=== PATIENT | male | born 1960 | race Caucasian/White ===

== ENCOUNTER 2018-10-29 08:19 | Inpatient (IN) ==
[2018-10-29] MEDS ORDERED: ASPIRIN PO ONE ×2 (08:44→12:07)
[2018-10-29 09:01] LABS: BASO# 0.01 X1000 (0.0-0.2); BASO% 0.2 % (0.0-0.8); EOS# 0.23 X1000 (0.0-0.7); EOS% 3.8 % (0.0-10.0); HEMOGLOBIN 14.4 g/dL (14.0-18.0); IMM GRAN# 0.04 X1000 (0.0-0.04); IMM GRAN% 0.7 % (0.0-0.5); LYMPH# 1.83 X1000 (1.2-3.4); LYMPH% 30.4 % (20.5-51.1); MCH 30.3 PG (27-31); MCHC 36.9 g/dL (33-37); MCV 81.9 FL (81-99); MONO# 0.58 X1000 (0.11-0.59); MONO% 9.6 % (1.7-9.3); MPV 10.6 FL (7.4-10.4); NEUT# 3.33 X1000 (1.4-6.5); NEUT% 55.3 % (42.2-75.2); PLT 215 X1000 (130-400); RBC 4.76 XMIL (4.7-6.1); RDW 12.8 % (11.5-14.5); WBC 6.02 X1000 (4.8-10.8)
[2018-10-29 09:10] LABS: INR 1.1; PROTIME 14.4 Seconds (11.0-16.0); PTT 36.2 Seconds (22.3-41.8)
[2018-10-29 09:22] LABS: AGAP 11; ALB/GLOB RATIO 1.6; ALBUMIN 4.5 g/dL (3.5-5.0); ALKALINE PHOSPHATASE 71 U/L (32-122); BUN 19 mg/dL (8-22); CALCIUM 9.6 mg/dL (8.8-10.2); CHLORIDE 99 mmol/L (98-107); CK PROFILE 117 U/L (24-204); COSMO 288; CREATININE 1.1 mg/dL (0.7-1.2); ESTIMATED GFR > 60; GLUCOSE 380 mg/dL (70-104); GOT 13 U/L (10-34); GPT 17 U/L (10-44); POTASSIUM 3.5 mmol/L (3.5-5.1); SODIUM 135 mmol/L (136-145); TCO2 25 mmol/L (25-35); TOTAL BILIRUBIN 0.46 mg/dL (0.20-1.00); TOTAL PROTEIN 7.4 g/dL (6.3-8.3)
--- NOTE | 2018-10-29 09:22 | Diag Imaging Result Doc PS360 ---
EXAM: CHEST-2 VIEWS 10/29/2018 HISTORY: CP TECHNIQUE: PA and lateral chest COMMENT: There is no evidence of acute cardiac or pulmonary disease. Compared to 11/04/2010 there has been no significant change. IMPRESSION: No evidence of acute disease. Electronically signed by Silver Jaramillo 10/29/2018 9:19 AM
--- NOTE | 2018-10-29 10:09 | EKG Report ---
Test Performed on : 10/29/2018 08:29:33 AM Test Reason : CP Blood Pressure : / mmHG Vent. Rate : 088 BPM Atrial Rate : 088 BPM P-R Int : 178 ms QRS Dur : 156 ms QT Int : 422 ms P-R-T Axes : 048 -54 027 degrees QTc Int : 510 ms Normal sinus rhythm. Possible Left atrial enlargement Right bundle branch block Left anterior fascicular block Bifascicular block Left ventricular hypertrophy Abnormal ECG When compared with ECG of 04-NOV-2010 03:28, Vent. rate has increased BY 30 BPM Left anterior fascicular block is now present QT has lengthened Unconfirmed Result
[2018-10-29] MEDS ORDERED: NITROGLYCERIN SL ONE ×2 (12:07→13:53)
[2018-10-29] MEDS ORDERED: NITROGLYCERIN TOP ONE (12:07)
[2018-10-29] MEDS ORDERED: NORVASC PO ONE (12:07)
[2018-10-29] MEDS ORDERED: LASIX IV ONE (12:07)
[2018-10-29 12:24] LABS: ALLEN TEST YES; BE 1.6 mmoll (-3.0-3.0); BLOOD TYPE ARTERIAL; HCO3-(ACT) 26.1 mmoll (20.0-26.0); METHB 0.8 % (0.0-1.5); O2(CT) 19.5 mL/dL (15.0-23.0); O2HB 93.7 % (95.0-99.0); PCO2(98.6) 39 mmHg (35-45); PO2(98.6) 69 mmHg (60-100); SAMPLE BLOOD; SAO2 95.9 % (95.0-100.0); THB 14.8 g/dL (11.5-17.4); pH(98.6) 7.43 (7.35-7.45)
[2018-10-29 12:25] LABS: MODALITY ROOM AIR
[2018-10-29] MEDS ORDERED: PRINIVIL PO ONE (13:53)
--- NOTE | 2018-10-29 13:55 | PROVIDER DOCUMENTATION ---
This chart was entered by Roslyn Hale Scribe, acting as scribe for Bola Navarrete MD. HPI-Chest Pain - General Chief Complaint: Chest Pain Stated Complaint: SOB, CP, MAURER Time Seen by Provider: 10/29/18 11:55 Source: patient Allergies/Adverse Reactions: Patient Allergies Allergy/AdvReac Type Severity Reaction Status Date / Time No Known Allergies Allergy Verified 10/29/18 11:09 Home Medications: Home Medication List Medication Instructions Recorded Confirmed Last Taken Type Amlodipine [Norvasc] 10 mg PO DAILY 10/29/18 10/29/18 10/22/18 History Glimepiride 4 mg PO BID 10/29/18 10/29/18 10/22/18 History LISINOpril [Prinivil] 40 mg PO BID 10/29/18 10/29/18 10/22/18 History Metoprolol [Lopressor] 100 mg PO BID 10/29/18 10/29/18 10/22/18 History PRAVAstatin [Pravachol] 40 mg PO DAILY 10/29/18 10/29/18 10/22/18 History Potassium Chloride [Klor-Con M10] 10 meq PO DAILY 10/29/18 10/29/18 10/22/18 History - History of Present Illness-CP Nature of Presenting Problem: 58 yowm [facility] c/o chest pain, sob and nausea and sts "Its been going on for a while" pt on exam sts all pain has resolved but pain is intermittent and when it comes it is 9/10 pain. pt has uncontrolled BP on exam with readings of 201/150 and 211/129. pt sts has been out of all his medications "for at least a week" pt on exam is nontoxic in appearance Location: reports: other (left anterior) Chest Pain Radiation: reports: no radiation Quality of Pain: reports: none Severity in ED: severe (9/10 "when pain hits") Onset/Duration: other ("for a while") Timing: gone now Context/Activities at Onset: reports: light activity Modifying Factors: improves with: nothing Associated Symptoms: reports: nausea, shortness of breath. denies: abdominal pain, back pain, fever/chills, headache, heartburn, vomiting Nitro Today/Relief: no nitro taken today Aspirin Treatment Today: 325 mg x 1, provided by ED Similar Symptoms Previously?: No Recently Seen Here or By Another Healthcare Provider: No Review of Systems - Adult - REVIEW OF SYSTEMS - ADULT Constitutional: denies: chills, fever Eyes: reports: no symptoms reported Ears, Nose, Mouth & Throat: reports: no symptoms reported Cardiovascular: reports: see HPI, chest pain, edema. denies: palpitations, syncope Respiratory: reports: shortness of breath. denies: cough, wheezing Gastrointestinal: reports: nausea. denies: abdominal pain, diarrhea, vomiting Genitourinary: reports: no symptoms reported Musculoskeletal: reports: no symptoms reported Integumentary: reports: no symptoms reported Neurological: denies: dizziness/vertigo, headache/migraines Psychiatric: reports: no symptoms reported Endocrine: reports: no symptoms reported Hematologic/Lymphatic: reports: no symptoms reported Allergic/Immunologic: reports: no symptoms reported All Other Systems: Reviewed and Negative Past History - Adult - PAST MEDICAL HISTORY-ADULT Review of Records: reports: Old Records Reviewed, Nursing Assessment Review, Medications Reviewed, Social history reviewed & non-contributory. Major Childhood Illnesses: reports: denies history Cardiovascular: reports: HTN, hyperlipidemia, murmur Respiratory: reports: denies history Gastrointestinal: reports: denies history Genitourinary: reports: denies history Musculoskeletal: reports: chronic pain, intervertebral disc disease, neck/back injury Neurological: reports: denies history Psychiatric: reports: denies history Endocrine/Immune: reports: Diabetes Diabetes Type: Type 2 Other Conditions: reports: denies history - PRIOR SURGERIES/PROCEDURES Surgical/Procedure History: reports: reviewed, not pertinent - IMMUNIZATION STATUS Childhood Immunizations: See Nurse Assessment Flu Vaccine: See Nurse Assessment - FAMILY HISTORY Family History: reviewed, not pertinent - SOCIAL HISTORY Smoking: cigarettes, greater than 1 pack/day Provider spent 3-5 mins advising pt. on dangers of tobacco.: Discussed manners to quit use, and f/u contacts for add'l counseling. Substance Use: alcohol Alcohol Use Frequency: 2-3 times a month Number of drinks per typical drinking period:: 3-4 drinks Living Situation: family Physical Exam-General - PHYSICAL EXAM-ADULT Exam Limited by: BP 211/129 Initial Vital Signs Reviewed: Yes - CONSTITUTIONAL General Appearance: appears well, alert, no apparent distress (all sx resolved) - EYES Eyes: PERRL/EOMI, pink conjunctivae - HEAD, EARS, NOSE, MOUTH & THROAT HENMT: moist mucous membranes, normal ENT inspection - NECK Neck: non-tender, full range of motion, supple, normal inspection - RESPIRATORY Respiratory: chest non-tender, lungs clear, normal breath sounds - CARDIOVASCULAR Cardiovascular: normal peripheral pulses, regular rate, rhythm - GASTROINTESTINAL (ABDOMEN) Abdominal Exam: normal bowel sounds, non tender, soft - GENITOURINARY Male Genitalia: deferred Rectal Exam: deferred Hemoccult Exam: deferred - MUSCULOSKELETAL Back Exam: normal inspection, no CVA tenderness, no vertebral tenderness Extremity: normal range of motion, non-tender, normal gait, swelling (BLE edema) - SKIN Integumentary: normal color, normal turgor, warm/dry - NEUROLOGIC 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 negative: aphasia, facial droop, focal weakness - PSYCHIATRIC Psych/Mental Status: normal mood/affect, normal thought content, normal thought process, oriented x 3 - HEART Score HEART Score: History: Slightly Suspicious HEART Score: ECG: Non-Specific Repolarization Disturbance/LBBB/PM HEART Score: Age: 45-65 Years HEART Score: Risk Factors for Atherosclerotic Disease: > or = 3 Risk Factors or History of Atherosclerotic Disease HEART Score: Troponin: < or = Normal Limit Total HEART Score:: 4 Progress - PLAN OF CARE/RESULTS Progress/Plan/Lab Results: Vital Signs - 8 hr 10/29/18 08:37 Temperature 98.0 F Pulse Rate 85 Respiratory Rate 18 Blood Pressure 179/108 O2 Sat by Pulse Oximetry 96 Laboratory Results - last 24 hr 10/29/18 10/29/18 10/29/18 08:41 08:41 08:41 WBC 6.02 RBC 4.76 Hgb 14.4 Hct 39.0 L MCV 81.9 MCH 30.3 MCHC 36.9 RDW Std Deviation 12.8 Plt Count 215 MPV 10.6 H Immature Gran % (Auto) 0.7 H Neut % (Auto) 55.3 Lymph % (Auto) 30.4 [place] % (Auto) 9.6 H Eos % (Auto) 3.8 Baso % (Auto) 0.2 Immature Gran # (Auto) 0.04 Neut # (Auto) 3.33 Lymph # (Auto) 1.83 [place] # (Auto) 0.58 Eos # (Auto) 0.23 Baso # (Auto) 0.01 PT INR PTT (Actin FS) Specimen Type Sample Site pH pCO2 pO2 HCO3 Base Excess Oxyhemoglobin ABG O2 Sat (Calculated) ABG O2 Saturation ABG Carboxyhemoglobin ABG Methemoglobin Jakob Test A-a O2 Difference Total Hemoglobin Lactate Blood Gas Modality FiO2 % Sodium 135 L Potassium 3.5 Chloride 99 Carbon Dioxide 25 Anion Gap 11 BUN 19 Creatinine 1.1 Estimated GFR/1.73 m2 > 60 BUN/Creatinine Ratio 17 Glucose 380 H Calculated Osmolality 288 Calcium 9.6 Total Bilirubin 0.46 AST 13 ALT 17 Alkaline Phosphatase 71 Creatine Kinase 117 Troponin T Fqh-R-Vvvqyudhwka Pept 72 Total Protein 7.4 Albumin 4.5 Globulin 2.9 Albumin/Globulin Ratio 1.6 Acetone Level 10/29/18 10/29/18 10/29/18 08:41 08:41 08:41 WBC RBC Hgb Hct MCV MCH MCHC RDW Std Deviation Plt Count MPV Immature Gran % (Auto) Neut % (Auto) Lymph % (Auto) [place] % (Auto) Eos % (Auto) Baso % (Auto) Immature Gran # (Auto) Neut # (Auto) Lymph # (Auto) [place] # (Auto) Eos # (Auto) Baso # (Auto) PT 14.4 INR 1.10 PTT (Actin FS) 36.2 Specimen Type Sample Site pH pCO2 pO2 HCO3 Base Excess Oxyhemoglobin ABG O2 Sat (Calculated) ABG O2 Saturation ABG Carboxyhemoglobin ABG Methemoglobin Jakob Test A-a O2 Difference Total Hemoglobin Lactate Blood Gas Modality FiO2 % Sodium Potassium Chloride Carbon Dioxide Anion Gap BUN Creatinine Estimated GFR/1.73 m2 BUN/Creatinine Ratio Glucose Calculated Osmolality Calcium Total Bilirubin AST ALT Alkaline Phosphatase Creatine Kinase Troponin T < 0.010 Ost-[id number]-Qacjqetcqsl Pept Total Protein Albumin Globulin Albumin/Globulin Ratio Acetone Level NEGATIVE 10/29/18 10/29/18 12:20 13:13 WBC RBC Hgb Hct MCV MCH MCHC RDW Std Deviation Plt Count MPV Immature Gran % (Auto) Neut % (Auto) Lymph % (Auto) [place] % (Auto) Eos % (Auto) Baso % (Auto) Immature Gran # (Auto) Neut # (Auto) Lymph # (Auto) [place] # (Auto) Eos # (Auto) Baso # (Auto) PT INR PTT (Actin FS) Specimen Type ARTERIAL Sample Site R RADIAL pH 7.43 pCO2 39 pO2 69 HCO3 26.1 H Base Excess 1.6 Oxyhemoglobin 93.7 L ABG O2 Sat (Calculated) 19.5 ABG O2 Saturation 95.9 ABG Carboxyhemoglobin 1.60 ABG Methemoglobin 0.8 Jakob Test YES A-a O2 Difference 32.0 Total Hemoglobin 14.8 Lactate 0.80 Blood Gas Modality ROOM AIR FiO2 % 21.0 Sodium Potassium Chloride Carbon Dioxide Anion Gap BUN Creatinine Estimated GFR/1.73 m2 BUN/Creatinine Ratio Glucose Calculated Osmolality Calcium Total Bilirubin AST ALT Alkaline Phosphatase Creatine Kinase Troponin T < 0.010 Owb-L-Rnlvsnkqhef Pept Total Protein Albumin Globulin Albumin/Globulin Ratio Acetone Level Orders Category Date Time Status Cardiac Monitoring DIRECTED Care 10/29/18 08:45 Active Oxygen Therapy- ED Nursing DIRECTED Care 10/29/18 08:45 Active Saline Loc NOW Care 10/29/18 08:45 Active CHEST-2 VIEWS [RAD] Stat Exams 10/29/18 08:45 Completed ABG [RESP] Routine Lab 10/29/18 12:20 Completed ACETONE SERUM [CHEM] Stat Lab 10/29/18 08:41 Completed CBC WITH ELECTRONIC DIFF [HEME] Stat Lab 10/29/18 08:41 Completed CK PROFILE [SP CHEM] Stat Lab 10/29/18 08:41 Completed CK PROFILE [SP CHEM] Stat Lab 10/29/18 13:13 Received COMPREHENSIVE METABOLIC PANEL [CHEM] Stat Lab 10/29/18 08:41 Completed PRO B-NATRIURETIC PEPTIDE Stat Lab 10/29/18 08:41 Completed PROTIME WITH INR [COAG] Stat Lab 10/29/18 08:41 Completed PTT [COAG] Stat Lab 10/29/18 08:41 Completed TROPONIN T Stat Lab 10/29/18 08:41 Completed TROPONIN T Stat Lab 10/29/18 13:13 Completed Amlodipine [Norvasc] Med 10/29/18 12:07 Discontinued 10 mg PO NOW ONE Aspirin Med 10/29/18 08:44 Discontinued 325 mg PO NOW ONE Aspirin Med 10/29/18 12:07 Discontinued 325 mg PO NOW ONE Furosemide [Lasix] Med 10/29/18 12:07 Discontinued 40 mg IV NOW ONE Nitroglycerin Med 10/29/18 12:07 Discontinued 1 inch TOP NOW ONE Nitroglycerin Sl [Nitroglycerin] Med 10/29/18 12:07 Discontinued 0.4 mg SL NOW ONE CP/SOB/Palp >45 yrs of Age Stat Oth 10/29/18 08:44 Ordered EKG [EKG] Stat Ther 10/29/18 08:45 Draft EKG [EKG] Stat Ther 10/29/18 11:13 Ordered Result Diagrams: 10/29/18 08:41 10/29/18 08:41 - REASSESSMENT Reassessment #1 Time Reassessed: 12:27 Status: improving Reassessment #2 Time Reassessed: 13:54 Status: improving (CP BETTER, BP BACK UP TO 195/. ADMISSIONDISCUSSED W. PT AND AND JENNIFER ALANIZ.) - EKG 1 Time of EKG reading by physician:: 08:29 EKG Read and Signed by:: Bola Navarrete EKG Interpretation (*Must complete 3 of following elements*): Abnormal Rate: 88 Rhythm: nsr [place]: normal QRS: RBB, LVH, other (LAFB Bifascicular block) [place] Interval: normal ST Wave: normal Comments: possible left atrial enlargement - XRAY 1 XRAY: Bilateral XRAY Study: Chest Impression: See EMR Report (EXAM: CHEST-2 VIEWS 10/29/2018 HISTORY: CP TECHNIQUE: PA and lateral chest COMMENT: There is no evidence of acute cardiac or pulmonary disease. Compared to 11/04/2010 there has been no significant change. IMPRESSION: No evidence of acute disease. Electronically signed by Silver Jaramillo 10/29/2018 9:19 AM 10/29/18918 Interpreting Physician: Silver Jaramillo MD Dictated Date/Time: 10/29/18918 cc: Bola Navarrete MD; None,PCP) - CONSULTS/PCP/HOSPITALIST Notification #1 *Consult/PCP/Hospitalist*: hospitalist dr pardo Time Discussed: 12:44 Consult Disposition: Will see in ED Departure - Departure Date of Disposition Decision: 10/29/18 Time of Disposition Decision: 13:25 DIAGNOSIS: SOB (shortness of breath), Tobacco use disorder Chest pain Qualifiers: Chest pain type: unspecified Qualified Code(s): R07.9 - Chest pain, unspecified Disposition: ADMITTED INPATIENT 09 Certified Medical Emergency: Emergent Condition: Stable Referrals and Follow-Ups: None,PCP [Primary Care Provider] - Discharge Education: Steps to Quit Smoking, [id number] - Critical Care Note This patient required my direct & personal management of CC.: Yes Total Time (mins): 37 Critical Care Statement: This patient required my direct personal management to treat or rule out processes, the absence of which, could potentiallly result in sudden, clinically significant life or limb threatening deterioration. Attestation - Physician/ JONY Attestation Patient care was provided by Advanced Practice Provider:: No The physician spent face to face time with patient:: Yes Advanced Practice Provider documentation review:: Supervising physician onsite and consulted in the evaluation and care of this patient. The physician did have a face to face encounter with the patient. This chart was documented by the indicated scribe, (Roslyn Hale Scribe) and accurately reflects the services I performed and decisions made by me, Bola Navarrete MD, as attested by the provider's signature.
[2018-10-29] MEDS ORDERED: APRESOLINE IV ONE (14:53)
[2018-10-29] MEDS ORDERED: LOPRESSOR IV ONE ×2 (14:58→17:34)
[2018-10-29] MEDS ORDERED: ZOFRAN IV PRN (15:01)
--- NOTE | 2018-10-29 16:28 | ED EKG INTERP ---
This chart was entered by Roslyn Hale Scribe, acting as scribe for Bola Navarrete MD. EKG Interpretation - EKG Time of EKG reading by physician:: 16:08 EKG Read and Signed by:: Bola Navarrete EKG Interpretation (*Must complete 3 of following elements*): Abnormal Rate: 59 Rhythm: sinus bradycardia QRS: RBB, LVH, other (LAFB/Bifascicular block) [place] Interval: normal ST Wave: normal Prior EKG Comparison: unchanged from prior Attestation - Physician/ JONY Attestation Patient care was provided by Advanced Practice Provider:: No The physician spent face to face time with patient:: Yes Advanced Practice Provider documentation review:: Supervising physician onsite and consulted in the evaluation and care of this patient. The physician did have a face to face encounter with the patient. This chart was documented by the indicated scribe, (Roslyn Hale Scribe) and accurately reflects the services I performed and decisions made by me, Bola Navarrete MD, as attested by the provider's signature.
--- NOTE | 2018-10-29 16:30 | EKG Report ---
Test Performed on : 10/29/2018 4:08:38 PM Test Reason : SOB/CP Blood Pressure : / mmHG Vent. Rate : 059 BPM Atrial Rate : 059 BPM P-R Int : 180 ms QRS Dur : 158 ms QT Int : 486 ms P-R-T Axes : 031 -52 -11 degrees QTc Int : 481 ms Sinus bradycardia. Right bundle branch block Left anterior fascicular block Bifascicular block Voltage criteria for left ventricular hypertrophy Abnormal ECG When compared with ECG of 29-OCT-2018 08:29, (Unconfirmed) Vent. rate has decreased BY 29 BPM Inverted T waves have replaced nonspecific T wave abnormality in Inferior leads Nonspecific T wave abnormality now evident in Anterior leads Unconfirmed Result
[2018-10-29] MEDS: HUMULIN R SUBQ SCH ×2 (18:32→21:00)
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
[2018-10-29] MEDS: TYLENOL PO PRN ×2 (20:42→23:23)
[2018-10-29 20:46] LABS: UR AMPHETAMINES QUAL NONE DETECTED (NONE DETECT); UR BARBITUATES QUAL NONE DETECTED (NONE DETECT); UR BENZODIAZEPIN QUAL NONE DETECTED (NONE DETECT); UR CANNABINOIDS QUAL NONE DETECTED (NONE DETECT); UR COCAINE QUAL NONE DETECTED (NONE DETECT); UR METHADONE QUAL NONE DETECTED (NONE DETECT); UR OPIATES QUAL NONE DETECTED (NONE DETECT); UR OXYCODONE QUAL NONE DETECTED (NONE DETECT); UR PCP QUAL NONE DETECTED (NONE DETECT)
[2018-10-29 20:57] LABS: HEMOGLOBIN A1C 7.8 % (4.8-6.0)
[2018-10-29] MEDS ORDERED: LASIX IV SCH (21:00)
[2018-10-30] MEDS: APRESOLINE IV PRN ×2 (00:37→05:01)
[2018-10-30] MEDS: TYLENOL PO PRN (05:40)
[2018-10-30] MEDS: HUMULIN R SUBQ SCH ×5 (06:19→22:07)
--- NOTE | 2018-10-30 08:13 | EKG Report ---
Test Performed on : 10/30/2018 07:34:57 AM Test Reason : chest pain Blood Pressure : / mmHG Vent. Rate : 082 BPM Atrial Rate : 082 BPM P-R Int : 168 ms QRS Dur : 158 ms QT Int : 464 ms P-R-T Axes : 058 -60 038 degrees QTc Int : 542 ms Normal sinus rhythm. Right bundle branch block Left anterior fascicular block Bifascicular block Minimal voltage criteria for LVH, may be normal variant Septal infarct , age undetermined Abnormal ECG When compared with ECG of 29-OCT-2018 16:08, (Unconfirmed) Septal infarct is now present T wave inversion no longer evident in Inferior leads Nonspecific T wave abnormality no longer evident in Anterior leads QT has lengthened Confirmed by Cammy ROGERS, Randy Manzano ([id number]) on 10/30/2018 1:55:38 PM
[2018-10-30 08:14] LABS: INR 1.09; PROTIME 14.2 Seconds (11.0-16.0); PTT 37.2 Seconds (22.3-41.8)
[2018-10-30 08:29] LABS: AGAP 14; ALB/GLOB RATIO 1.2; ALBUMIN 4.1 g/dL (3.5-5.0); ALKALINE PHOSPHATASE 69 U/L (32-122); BUN 18 mg/dL (8-22); CALCIUM 8.8 mg/dL (8.8-10.2); CHLORIDE 96 mmol/L (98-107); COSMO 276; CREATININE 0.9 mg/dL (0.7-1.2); ESTIMATED GFR > 60; GLUCOSE 273 mg/dL (70-104); GOT 13 U/L (10-34); GPT 17 U/L (10-44); MAGNESIUM 1.9 mg/dL (1.5-2.7); SODIUM 132 mmol/L (136-145); TCO2 22 mmol/L (25-35); TOTAL BILIRUBIN 0.63 mg/dL (0.20-1.00); TOTAL PROTEIN 7.4 g/dL (6.3-8.3)
[2018-10-30 08:40] LABS: HEMATOCRIT 40.9 % (42.0-52.0); RBC 4.99 XMIL (4.7-6.1); WBC 8.92 X1000 (4.8-10.8)
[2018-10-30 08:41] LABS: BASO# 0.02 X1000 (0.0-0.2); BASO% 0.2 % (0.0-0.8); EOS# 0.14 X1000 (0.0-0.7); EOS% 1.6 % (0.0-10.0); IMM GRAN# 0.03 X1000 (0.0-0.04); IMM GRAN% 0.3 % (0.0-0.5); LYMPH# 1.49 X1000 (1.2-3.4); LYMPH% 16.7 % (20.5-51.1); MCH 30.1 PG (27-31); MCHC 36.7 g/dL (33-37); MONO# 0.66 X1000 (0.11-0.59); MONO% 7.4 % (1.7-9.3); MPV 11.1 FL (7.4-10.4); NEUT# 6.58 X1000 (1.4-6.5); NEUT% 73.8 % (42.2-75.2); PLT 234 X1000 (130-400)
[2018-10-30] MEDS: NORVASC PO SCH (09:45)
[2018-10-30] MEDS: LOPRESSOR PO SCH ×3 (09:46→22:04)
[2018-10-30] MEDS: PRINIVIL PO SCH ×3 (09:46→22:05)
[2018-10-30] MEDS ORDERED: LEXISCAN ONE (13:55)
--- NOTE | 2018-10-30 13:57 | PROGRESS NOTE ---
DATE: 10/30/2018 SUBJECTIVE: This patient today is not complaining of chest discomfort, but he is complaining of headache. His blood pressure has been mostly elevated, between the 130s and 170s,. Upon admission his blood pressure was around 180s to 200s. He is feeling a little bit better but he still complaining of headache, I will get a stress test today done, I will add hydralazine to his medications. As per the patient, he is not working at this moment and he was not able to take his medications as prescribed. PHYSICAL EXAMINATION: Vital Signs: Temperature 98.2 degrees, pulse 58, respiratory rate 16, blood pressure 139/86, oxygen saturation 98 on room air. HEENT: Head normocephalic, no trauma. PERRLA neck is supple. No JVD. No masses. Central trachea. Chest: Clear to auscultation. No wheezing. No rales. Abdomen: Soft, nontender, nondistended. No hepatosplenomegaly. Extremities: No edema no clubbing no cyanosis. Neurological: Alert and oriented x3. No focal deficits. LABORATORY: WBC 8.9, hemoglobin 15, hematocrit 40.9, platelets 234,000. Sodium 132, potassium 3, chloride 96, bicarbonate 22, BUN 18, creatinine 0.9, glucose 273, calcium 8.8. ASSESSMENT AND PLAN: 1. Hypertensive urgency with chest pressure, negative troponin x3. I will get a stress test done today. I will add hydralazine to his medications for the blood pressure since this blood pressure is still elevated. We will continue to monitor this patient closely. 2. Hyperlipidemia, continue with statins. 3. Type 2 diabetes. We will continue with the sliding scale insulin and pattern blood sugar for now. Probably tomorrow we will start this patient on long-acting insulin. 4. Deep vein thrombosis prophylaxis with Lovenox. cc: Alex Medina MD
--- NOTE | 2018-10-30 16:04 | Diag Imaging Result Document ---
PROCEDURE NAME: MYOCARDIAL PERF SCAN, STR/REST - 10/29/2018 INDICATION: Chest pain. PROCEDURES PERFORMED: 1. Walking Lexiscan stress. 2. One-day stress/rest myocardial perfusion imaging. PROCEDURE IN DETAIL: FINDINGS: LEXISCAN STRESS RESULTS: 1. Baseline EKG shows sinus rhythm, right bundle branch block. 2. Walking Lexiscan stress did not demonstrate any clear evidence of ischemic-related EKG changes or significant arrhythmias. PERFUSION IMAGING RESULTS: 1. Evidence of abnormal extracardiac uptake. 2. TID ratio is 1.26, but on review of the splash images there does not appear to be any clear evidence of transient ischemic dilatation. 3. Perfusion imaging shows a small to moderate size, mild intensity, fixed defect located in the inferior apical, mid inferior, as well as the basal inferior segments. This could be related to soft tissue attenuation artifact as this is a fixed defect, not reversible, and has intact wall motion in the area. 4. Normal ejection fraction of 61%. End-diastolic volume 155, end-systolic volume 60. Normal wall motion. cc: MD Alex Mac MD
[2018-10-30] MEDS ORDERED: HUMULIN 70/30 SUBQ SCH (17:00)
[2018-10-30] MEDS ORDERED: INSULIN PEN NEEDLES ONE (18:02)
--- NOTE | 2018-10-30 20:33 | ECHO REPORT ---
ORDER DATE: 10/29/2018 INDICATION: Shortness of breath, chest pain. FINDINGS: 1. The right atrium appears normal in size at 3.8 cm. 2. Mild tricuspid regurgitation. Insufficient data to estimate RV systolic pressure. 3. Normal RV size and systolic function. 4. No significant pulmonic insufficiency. 5. Normal left atrial size at 3.5 cm. 6. No mitral prolapse. Trace mitral regurgitation. No evidence of stenosis. 7. Normal LV size, end-diastolic dimension of 5.1. Mild left ventricular hypertrophy with posterior and interventricular septal wall thickness of 1.3 cm each. Normal LV systolic function. Estimated EF of 65%, with normal wall motion. 8. The aortic valve opens well. It is trileaflet. No evidence of stenosis or insufficiency. 9. The aorta appears normal in visualized segments. 10. No pericardial effusion seen. cc: MD Shannon Mac CRNP
[2018-10-30] MEDS: PRAVACHOL PO SCH ×2 (22:04→22:07)
[2018-10-30] MEDS: APRESOLINE PO SCH (22:05)
[2018-10-31] MEDS: HUMULIN R SUBQ SCH ×4 (06:58→22:03)
[2018-10-31] MEDS ORDERED: HUMULIN 70/30 SUBQ SCH ×2 (07:00→17:00)
[2018-10-31 08:07] LABS: CALCIUM 9.3 mg/dL (8.8-10.2); CREATININE 1.3 mg/dL (0.7-1.2); POTASSIUM 3.5 mmol/L (3.5-5.1)
[2018-10-31] MEDS: APRESOLINE PO SCH ×3 (08:52→17:49)
[2018-10-31] MEDS: NORVASC PO SCH (08:52)
[2018-10-31] MEDS: LOPRESSOR PO SCH ×2 (08:54→22:03)
--- NOTE | 2018-10-31 09:50 | PROGRESS NOTE ---
DATE: 10/31/2018 SUBJECTIVE: This patient is now complaining of chest pain, mild headache. Blood pressure has been better controlled. His creatinine increased from 0.9 to 1.3. I will hold the lisinopril. Also his blood sugar has been 300. I have increased the dose of the insulin 70/30 to 20 during the day and 10 during the night, and I will continue to monitor. OBJECTIVE: Vital Signs: Temperature 98.6 degrees, pulse 57, respiratory rate 20, blood pressure 147/91, oxygen saturation 98 on room air. HEENT: Head normocephalic, no trauma. PERRLA. Neck: Supple. No JVD. No masses. Central trachea. Chest: Clear to auscultation. No wheezing. No rales. Abdomen: Soft, nontender, nondistended. No hepatosplenomegaly. Extremities: No edema, no clubbing, no cyanosis. Neurological examination: The patient is alert. No focal deficits. LABORATORY: Sodium 137, potassium 3.5, chloride 100, bicarbonate 25. BUN 28, creatinine 1.3, glucose 304, calcium 9.3. ASSESSMENT AND PLAN: 1. Hypertensive urgency with chest pressure, negative troponins times 3. Echocardiogram showed a good ejection fraction with some left ventricular hypertrophy. Nuclear stress test did not show any evidence of acute coronary syndrome. It showed a small to moderate size, mild intensity, fixed defect located in the inferior apical, mid inferior, as well as basal inferior segment. This could be related to soft tissue attenuation artifact as this is fixed defect, not reversible, and has intact wall motion in that area. 2. Chest pain as above, resolved. 3. Hyperlipidemia. Continue with statins. 4. Type 2 diabetes. I have increased the dose of the insulin 70/30 to 20 in the morning and 10 during the night. The blood sugar is still uncontrolled. Hemoglobin A1c 7.8. Diet and exercise has been discussed. 5. Obesity with a body mass index of 2.3. Diet and exercise has been discussed. 6. Deep vein thrombosis prophylaxis with Lovenox. 7. Kidney dysfunction. I am not sure if this patient has acute on chronic or just chronic kidney disease. Given his history of diarrhea, uncontrolled diabetes and hypertension, probably this patient already has a chronic kidney issue. I will monitor. I have stopped for today the lisinopril, but I will restart MORRIS inhibitors after discharge. cc: Alex Medina MD
[2018-10-31] MEDS: PRAVACHOL PO SCH ×2 (22:03→22:05)
[2018-11-01] MEDS ORDERED: HUMULIN 70/30 SUBQ SCH (07:00)
[2018-11-01] MEDS: HUMULIN R SUBQ SCH ×2 (07:01→11:13)
[2018-11-01 07:06] LABS: AGAP 11; BUN 26 mg/dL (8-22); CALCIUM 8.2 mg/dL (8.8-10.2); CHLORIDE 104 mmol/L (98-107); COSMO 292; CREATININE 1.1 mg/dL (0.7-1.2); ESTIMATED GFR > 60; GLUCOSE 241 mg/dL (70-104); POTASSIUM 3.9 mmol/L (3.5-5.1); SODIUM 140 mmol/L (136-145); TCO2 25 mmol/L (25-35)
[2018-11-01 07:55] VITALS: BP 158/88
[2018-11-01] MEDS ORDERED: PRINIVIL PO SCH (10:30)
[2018-11-01] MEDS: NORVASC PO SCH (11:13)
[2018-11-01] MEDS: LOPRESSOR PO SCH (11:13)
[2018-11-01] MEDS ORDERED: APRESOLINE PO SCH (13:00)
--- NOTE | 2018-11-01 14:37 | DISCHARGE SUMMARY ---
ADMISSION DATE: 10/29/2018 DISCHARGE DATE: 11/01/2018 DISCHARGE DIAGNOSES: 1. Hypertensive urgency with chest pain. 2. Chest pain. 3. Hyperlipidemia. 4. Type 2 diabetes. 5. Obesity with a body mass index of 32.3. 6. Likely chronic kidney disease. PROCEDURES PERFORMED: 1. Echocardiogram dated 10/29/2018. Findings: Normal left ventricular systolic function, ejection fraction of 65%. 2. Stress test dated 10/29/2018. Impression: Normal ejection fraction of 61% end anti and diastolic volume 155 and systolic volume 60, normal wall motion. Perfusion imaging showed a small to moderate size, mild intensity fixed defect located in the inferoapical, mid inferior as well as the basal inferior segment. This could be related to soft tissue attenuation artifact as this is a fixed defect, not reversible, and has intact wall motion in that area. HOSPITAL COURSE: 58-year-old male with a past medical history of diabetes, hypertension, hyperlipidemia, CVA in 2010, chronic pain admitted on 10/29/2018. Apparently he started having chest pain x2 the day prior to admission. The day of admission, he developed again chest pain, and he described it like tight, pressure-like, not radiated, associated with shortness of breath, nausea, dizziness, and sweating. He was admitted. Cardiac enzymes were negative. We had decided to treat the blood pressure as well as his diabetes that were really uncontrolled. Upon admission, the blood pressure was inclusive above 200/120s. We did a stress test that did not show any acute abnormality to think about an acute coronary syndrome. Since admission, he was complaining of severe headache, but today the headache is completely resolved. He is feeling much better. I have started this patient on insulin 70/30 and have been increasing the dose slowly. His blood sugar is better controlled now, still a little bit elevated, but he will need to follow that up with his primary care doctor. His blood pressure has been mostly in 150s, and again he needs to follow that up with his primary care doctor. We had a large conversation about diabetes, hypertension, and diet. He needs to lose some weight also. At the moment of discharge, this patient was in stable medical condition, tolerating p.o., and ambulating by himself, no symptoms. PHYSICAL EXAMINATION: Vital signs: Temperature 98.6 degrees, pulse 55, respiratory rate 20, blood pressure 158/88. Oxygen saturation 98 on room air. HEENT: Head normocephalic, no trauma. PERRLA. Neck: Supple. No JVD. No masses. Central trachea. Chest: Clear to auscultation. No wheezing. No rales. Abdomen: Soft, nontender, nondistended. No hepatosplenomegaly. Extremities: No edema, no clubbing, no cyanosis. Neurological: Patient is alert. He is oriented x3. No focal deficits. LABORATORY: Sodium 140, potassium 3.9, chloride 104, bicarbonate 25, BUN 26, creatinine 1.1, glucose 241, calcium 8.2. DISCHARGE MEDICATIONS: 1. Amlodipine 10 mg p.o. daily. 2. Hydralazine 25 mg p.o. q.8 hours. 3. Insulin 70/30, 25 units in the morning and 12 units during the night prior to his meal. 4. Lisinopril 20 mg p.o. daily. 5. Metformin 500 mg p.o. b.i.d. 6. Metoprolol 100 mg p.o. b.i.d. 7. Pravastatin 40 mg p.o. daily. TIME DISCHARGING THIS PATIENT: 30 minutes. cc: Alex Medina MD
== END 2018-11-01 14:01 | disposition home or self-care (01) | DRG 305 ==
LOC: ED 08:19 → EDIPHOLD 15:19 → 4N 10-30 00:52
PROVIDERS: ATTEND Internal Medicine